=== PATIENT | male | born 1960 | race Two or more races ===

== ENCOUNTER 2024-02-07 20:49 | Inpatient (IN) | payer OTHER ==
[~2024-02-07] VITALS: Ht 167.6 cm; Wt 76.0 kg
[2024-02-07 21:00] VITALS: PULSE 92; RESP 15; O2SAT 100
[2024-02-07 21:18] LABS: Basophils # (auto) 0.1 10 ^3/uL (0-0.2); Basophils % (auto) 0.9 % (0.0-2.0); Eosinophils # (auto) 0.4 10 ^3/uL (0-0.8); Eosinophils % (auto) 6.3 % (0.0-7.0); Hematocrit 25.8 % (41.0-53.0); Hemoglobin 8.6 g/dL (13.5-17.5); Lymphocytes # (auto) 0.6 10 ^3/uL (0.4-5.4); Lymphocytes % (auto) 9.7 % (10.0-50.0); Mean Corpuscular Hemoglobin 30.2 pg (28.0-32.0); Mean Corpuscular Hgb Conc. 33.5 g/dL (32.0-36.0); Mean Corpuscular Volume 90.1 fL (80.0-100.0); Monocytes # (auto) 0.3 10 ^3/uL (0-1.3); Monocytes % (auto) 5.6 % (0.0-12.0); Neutrophils # (auto) 4.6 10 ^3/uL (1.6-8.6); Neutrophils % (auto) 77.5 % (37.0-80.0); Nucleated Red Blood Cells % 0.2 %; Red Blood Cells 2.86 10^6/uL (4.5-5.90); Red Cell Distribution Width 15.4 % (11.8-14.3); White Blood Cell 5.9 10^3/uL (4.4-10.8)
[2024-02-07 21:33] LABS: Alanine Aminotransferase 21 U/L (7-40); Albumin 3.7 g/dL (3.2-4.8); Alkaline Phosphatase 81 U/L (46-116); Anion Gap 4 (5-15); Aspartate Aminotransferase 19 U/L (13-40); BUN/Creatinine Ratio 10.1 (10.0-20.0); Bilirubin, Total 0.3 mg/dL (0.2-1.0); Blood Urea Nitrogen 64 mg/dL (9-23); Calcium 8.9 mg/dL (8.7-10.4); Carbon Dioxide 28 mmol/L (20-30); Chloride 102 mmol/L (98-107); INR 0.98 (0.9-1.15); Magnesium 1.8 mg/dL (1.6-2.6); Partial Thromboplastin Time 25.9 SEC (24.5-34.5); Potassium 5.2 mmol/L (3.5-5.1); Prothrombin Time 10.3 sec (9.3-11.8); Sodium 134 mmol/L (136-145); Total Protein 5.6 g/dL (5.7-8.2)
[2024-02-07 21:39] LABS: Glucose 432 mg/dL (74-106)
[2024-02-07] MEDS: InsuLIN REG 1unit/0.01ml Soln (100units/ml) IV ONE (22:24)
[2024-02-07] MEDS: ASPirin 325 MG TAB PO ONE (23:04)
[2024-02-07 23:32] LABS: Urine Bacteria NONE SEEN /hpf (None Seen); Urine Blood Negative /uL (Negative); Urine Clarity Clear (Clear); Urine Color Colorless (Yellow); Urine Protein, UAD 1+ (Negative); Urine Specific Gravity 1.008 (1.001-1.035); Urine Urobilinogen Normal (Negative); Urine WBC <1 /hpf (0 - 3); Urine pH 7.5 (5.0-8.0)
[2024-02-07] MEDS: HEPARIN SODIUM (PORCINE) 5000 UNITS/ML 1ML VIAL IV ONE (23:36)
[2024-02-08] VITALS (17 sets, daily range): BP systolic 98–174; BP diastolic 55–123; PULSE 74–119; RESP 9–26; TEMP 97.8–98.8; O2SAT 89–100
[2024-02-08] MEDS: PERITONEAL DIALYSIS 2.5% SOLN 2,000 ML IP SCH
[2024-02-08] MEDS: HEPARIN DRIP/D5W 100UNITS/ML 250 ML IV SCH (00:38)
[2024-02-08] MEDS ORDERED: DEXTROSE (50%) 50ML SYRG IV PRN (01:45)
[2024-02-08] MEDS ORDERED: ACETAMINOPHEN 325 MG TAB PO PRN (01:45)
[2024-02-08] MEDS ORDERED: HYDROcodone-ACET 5/325MG TAB PO PRN (01:45)
[2024-02-08] MEDS: InsuLIN REG 1unit/0.01ml Soln (100units/ml) SC SCH (04:00)
[2024-02-08] MEDS ORDERED: HYDR50TA47 PO (04:56)
[2024-02-08] MEDS ORDERED: LEVO137T3 PO (04:56)
[2024-02-08] MEDS ORDERED: ISOS1TAB28 PO (04:56)
[2024-02-08] MEDS ORDERED: CLON0.1T PO (04:56)
[2024-02-08] MEDS ORDERED: NIFE1TAB31 PO (04:56)
[2024-02-08] MEDS ORDERED: LISI-275 PO (04:56)
[2024-02-08] MEDS ORDERED: INSU1INJ3 SC (04:56)
[2024-02-08] MEDS ORDERED: FURO80TA3 PO (04:56)
[2024-02-08] MEDS ORDERED: ATOR40TA52 PO (04:56)
[2024-02-08 07:28] LABS: Basophils # (auto) 0.1 10 ^3/uL (0-0.2); Eosinophils # (auto) 0.6 10 ^3/uL (0-0.8); Mean Corpuscular Hemoglobin 30.1 pg (28.0-32.0); Monocytes # (auto) 0.5 10 ^3/uL (0-1.3); Red Blood Cells 2.67 10^6/uL (4.5-5.90); Red Cell Distribution Width 15.5 % (11.8-14.3)
[2024-02-08 07:30] LABS: Hematocrit 23.7 % (41.0-53.0); Hemoglobin 8.1 g/dL (13.5-17.5); Lymphocytes % (auto) 14.8 % (10.0-50.0); Mean Corpuscular Volume 88.6 fL (80.0-100.0); Monocytes % (auto) 8.4 % (0.0-12.0); Neutrophils # (auto) 4.2 10 ^3/uL (1.6-8.6); Neutrophils % (auto) 65.8 % (37.0-80.0); White Blood Cell 6.4 10^3/uL (4.4-10.8)
[2024-02-08 07:38] LABS: Anion Gap 7 (5-15); Carbon Dioxide 28 mmol/L (20-30); Chloride 104 mmol/L (98-107); Potassium 4.5 mmol/L (3.5-5.1); Sodium 139 mmol/L (136-145)
[2024-02-08 07:39] LABS: Calcium 8.8 mg/dL (8.5-10.1)
[2024-02-08 07:41] LABS: INR 1.01 (0.9-1.15); Partial Thromboplastin Time 43.5 SEC (24.5-34.5); Prothrombin Time 10.6 sec (9.3-11.8)
[2024-02-08 07:44] LABS: BUN/Creatinine Ratio 10.9 (10.0-20.0); Blood Urea Nitrogen 74 mg/dL (9-23); Glucose 135 mg/dL (74-106); Triglycerides 168 mg/dL (< 150)
[2024-02-08 07:45] LABS: LDL Cholesterol 71 mg/dL (< 100)
[2024-02-08 07:46] LABS: Cholesterol 132 mg/dL (< 200); HDL Cholesterol 25 mg/dL (40-59)
[2024-02-08] MEDS: ACCU-CHEK COMFORT CURVE STRIP VI SCH (07:47)
[2024-02-08] MEDS: SODIUM CHLOR 0.9% PF (SALINE LOCK) 10ML VIAL/SYR IV SCH (07:47)
[2024-02-08] MEDS: HEPARIN IN NS 1000Units/500mL 1,500 ML ONE (09:09)
[2024-02-08] MEDS: LIDOCAINE 2%HCL (LOCAL ANESTH.) INJ 20ML MDV ONE ×2 (09:09→10:11)
[2024-02-08] MEDS: IODIXANOL 320MG/ML 100ML BTL IV ONE ×4 (09:10→13:17)
[2024-02-08] MEDS: IOHEXOL 350 MG/ML 100ML IJ ONE (09:10)
[2024-02-08] MEDS: PERITONEAL DIALYSIS 2.5% SOLN 2,000 ML IP ONE (10:00)
[2024-02-08] MEDS ORDERED: METOPROLOL TARTRATE 25 MG TAB PO SCH (10:00)
[2024-02-08] MEDS: VERAPAMIL 2.5MG/ML INJ 2ML VIAL IV ONE (10:10)
[2024-02-08] MEDS: ANGIOMAX 250 MG VIAL IV ONE (10:10)
[2024-02-08] MEDS: MIDAZOLAM HCL 2MG/2ML 2ml VIAL (1mg/ml) ONE (10:10)
[2024-02-08] MEDS: HEPARIN SODIUM (PORCINE) 5000 UNITS/ML 1ML VIAL ONE (10:10)
[2024-02-08] MEDS: fentaNYL CITRATE 100 MCG/2 ML VL ONE (10:10)
[2024-02-08] MEDS: SODIUM CHL 0.9% 50 ML ONE (10:10)
[2024-02-08 11:30] LABS: Magnesium 1.9 mg/dL (1.6-2.6)
[2024-02-08] MEDS: HYDROmorphone HCL 2 MG/ML VL/or syr ONE ×2 (12:19→13:16)
[2024-02-08] MEDS: EPTIFIBATIDE INJ (2MG/ML) 10ML VIAL IV ONE (12:42)
[2024-02-08] MEDS: EPTIFIBATIDE DRIP(0.75MG/ML) 100 ML IV ONE (13:17)
[2024-02-08] MEDS: EPTIFIBATIDE DRIP(0.75MG/ML) 100 ML IV SCH (13:31)
[2024-02-08] MEDS: CLOPIDOGREL BISULFATE 75 MG TAB ONE ×2 (13:37→13:38)
[2024-02-08] MEDS: ASPirin 325 MG TAB ONE (13:38)
[2024-02-08] MEDS: ONDANSETRON HCL 4 MG/2 ML VIAL IV PRN (13:46)
[2024-02-08] MEDS: CLOPIDOGREL BISULFATE 75 MG TAB PO ONE (14:09)
[2024-02-08] MEDS: ASPirin-EC 81 mg tab PO ONE (14:09)
[2024-02-08] MEDS: NITROGLYCERIN 0.4 MG SL TAB SL PRN (14:20)
[2024-02-08] MEDS: NITROGLYCERIN 0.4MG/HR TOPICAL PATCH TD ONE ×2 (15:30→17:15)
[2024-02-08] MEDS: FUROSEMIDE 100 MG/10ML VIAL IV SCH (15:45)
[2024-02-08] MEDS: MORPHINE SULFATE INJ 2 MG/ml SYRG IV PRN ×2 (16:25→20:50)
[2024-02-08] MEDS: EPOETIN ALFA-EPBX 10,000 UNIT/1ML VIAL SC SCH (18:42)
[2024-02-08] MEDS ORDERED: ATORVASTATIN 20 MG TAB PO SCH (22:00)
[2024-02-08] MEDS: ATORVASTATIN 20 MG TAB PO SCH (23:08)
[2024-02-08] MEDS: METOPROLOL TARTRATE 25 MG TAB PO SCH (23:08)
[2024-02-09] VITALS (28 sets, daily range): BP systolic 124–182; BP diastolic 47–90; PULSE 62–92; RESP 6–17; TEMP 97.8–98.8; O2SAT 87–100
[2024-02-09] MEDS: COLCHICINE 0.6 MG CAP PO ONE (01:37)
[2024-02-09] MEDS: hydrALAZINE HCL 20 MG/ML VL ONE ×2 (04:13→17:46)
[2024-02-09] MEDS: HYDROmorphone HCL 2 MG/ML VL/or syr IV PRN (04:27)
[2024-02-09] MEDS: METOCLOPRAMIDE HCL 5MG/ml INJ 2ml VIAL IV PRN (04:48)
[2024-02-09] MEDS: hydrALAZINE HCL 20 MG/ML VL IV PRN (05:01)
[2024-02-09 05:02] LABS: Basophils # (auto) 0.1 10 ^3/uL (0-0.2); Eosinophils # (auto) 0.2 10 ^3/uL (0-0.8); Eosinophils % (auto) 1.7 % (0.0-7.0); Hematocrit 26.9 % (41.0-53.0); Hemoglobin 9.2 g/dL (13.5-17.5); Lymphocytes # (auto) 0.7 10 ^3/uL (0.4-5.4); Lymphocytes % (auto) 7.8 % (10.0-50.0); Mean Corpuscular Hemoglobin 30.2 pg (28.0-32.0); Mean Corpuscular Hgb Conc. 34.1 g/dL (32.0-36.0); Mean Corpuscular Volume 88.6 fL (80.0-100.0); Monocytes # (auto) 0.7 10 ^3/uL (0-1.3); Monocytes % (auto) 7.7 % (0.0-12.0); Neutrophils # (auto) 7.7 10 ^3/uL (1.6-8.6); Neutrophils % (auto) 81.8 % (37.0-80.0); Red Blood Cells 3.04 10^6/uL (4.5-5.90); Red Cell Distribution Width 15.5 % (11.8-14.3); White Blood Cell 9.4 10^3/uL (4.4-10.8)
[2024-02-09 05:12] LABS: Alanine Aminotransferase 20 U/L (7-40); Alkaline Phosphatase 94 U/L (46-116); Anion Gap 7 (5-15); Aspartate Aminotransferase 34 U/L (13-40); Bilirubin, Total 0.4 mg/dL (0.2-1.0); Blood Urea Nitrogen 71 mg/dL (9-23); Calcium 9.4 mg/dL (8.7-10.4); Carbon Dioxide 28 mmol/L (20-30); Chloride 102 mmol/L (98-107); Glucose 98 mg/dL (74-106); Potassium 4.7 mmol/L (3.5-5.1); Sodium 137 mmol/L (136-145)
[2024-02-09 05:13] LABS: Total Protein 6.4 g/dL (5.7-8.2)
[2024-02-09 05:35] LABS: % Iron Saturation 24.8 % (20-55)
[2024-02-09] MEDS: FAMOTIDINE (10MG/ML) 2ML VL IV SCH (10:00)
[2024-02-09] MEDS: NITROGLYCERIN 0.4MG/HR TOPICAL PATCH TD SCH (10:00)
[2024-02-09] MEDS: MUPIROCIN 2% OINT 15gm or 22gm TOP SCH (10:00)
[2024-02-09] MEDS ORDERED: KETOROLAC TROMETH 30 MG/ML 1ML VIAL IV ONE (10:30)
[2024-02-09] MEDS: CLOPIDOGREL BISULFATE 75 MG TAB PO SCH (10:43)
[2024-02-09] MEDS: COLCHICINE 0.6 MG CAP PO SCH (10:45)
[2024-02-09] MEDS: KETOROLAC TROMETH 30 MG/ML 1ML VIAL IV ONE (10:46)
[2024-02-09] MEDS: B-COMPLEX W/ C & FOLIC ACID(NEPHROVITE TAB) PO SCH (10:53)
[2024-02-09] MEDS: ASPirin 81 mg TAB PO SCH (10:53)
[2024-02-09] MEDS: LIDOCAINE 2%HCL (LOCAL ANESTH.) INJ 20ML MDV ONE (17:12)
[2024-02-09] MEDS: HEPARIN SODIUM (PORCINE) 5000 UNITS/ML 1ML VIAL ONE (17:12)
[2024-02-09] MEDS: SODIUM CHL 0.9% 50 ML ONE (17:12)
[2024-02-09] MEDS: VERAPAMIL 2.5MG/ML INJ 2ML VIAL IV ONE (17:12)
[2024-02-09] MEDS: ANGIOMAX 250 MG VIAL IV ONE (17:12)
[2024-02-09] MEDS: fentaNYL CITRATE 100 MCG/2 ML VL ONE (17:12)
[2024-02-09] MEDS: MIDAZOLAM HCL 2MG/2ML 2ml VIAL (1mg/ml) ONE (17:12)
[2024-02-09] MEDS: IODIXANOL 320MG/ML 100ML BTL IV ONE ×2 (17:21→18:07)
[2024-02-09] MEDS: HYDROmorphone HCL 2 MG/ML VL/or syr ONE (18:42)
[2024-02-09] MEDS ORDERED: HYDROmorphone HCL 2 MG/ML VL/or syr IV PRN (18:45)
[2024-02-09] MEDS: cloNIDine HCL 0.1 MG TAB PO PRN (21:57)
[2024-02-09] MEDS: SEVELAMER 800 MG TAB PO SCH (21:58)
[2024-02-10] VITALS (105 sets, daily range): BP systolic 107–194; BP diastolic 55–122; PULSE 64–110; RESP 6–21; TEMP 98.5–98.9; O2SAT 87–100
[2024-02-10] MEDS: HYDROmorphone HCL 2 MG/ML VL/or syr IV PRN (04:19)
[2024-02-10] MEDS: NITROGLYCERIN 50MG/250ML 250 ML IV SCH (04:35)
[2024-02-10 09:22] LABS: Basophils # (auto) 0 10 ^3/uL (0-0.2); Basophils % (auto) 0.4 % (0.0-2.0); Eosinophils # (auto) 0 10 ^3/uL (0-0.8); Eosinophils % (auto) 0.2 % (0.0-7.0); Hematocrit 25.7 % (41.0-53.0); Hemoglobin 8.5 g/dL (13.5-17.5); Lymphocytes # (auto) 0.8 10 ^3/uL (0.4-5.4); Lymphocytes % (auto) 6.7 % (10.0-50.0); Mean Corpuscular Hemoglobin 29.8 pg (28.0-32.0); Mean Corpuscular Hgb Conc. 33.3 g/dL (32.0-36.0); Mean Corpuscular Volume 89.5 fL (80.0-100.0); Monocytes # (auto) 0.7 10 ^3/uL (0-1.3); Monocytes % (auto) 5.7 % (0.0-12.0); Neutrophils # (auto) 10.3 10 ^3/uL (1.6-8.6); Red Blood Cells 2.87 10^6/uL (4.5-5.90); Red Cell Distribution Width 15.1 % (11.8-14.3); White Blood Cell 11.8 10^3/uL (4.4-10.8)
[2024-02-10 09:32] LABS: Alanine Aminotransferase 18 U/L (7-40); Albumin 3.9 g/dL (3.2-4.8); Alkaline Phosphatase 98 U/L (46-116); Anion Gap 10 (5-15); Aspartate Aminotransferase 30 U/L (13-40); BUN/Creatinine Ratio 8.9 (10.0-20.0); Blood Urea Nitrogen 73 mg/dL (9-23); Carbon Dioxide 26 mmol/L (20-30); Chloride 99 mmol/L (98-107); Potassium 4.7 mmol/L (3.5-5.1); Sodium 135 mmol/L (136-145)
[2024-02-10 09:33] LABS: Bilirubin, Total 0.3 mg/dL (0.2-1.0); Total Protein 6.2 g/dL (5.7-8.2)
[2024-02-10 10:43] LABS: Glucose 210 mg/dL (74-106)
[2024-02-10] MEDS: DOCUSATE SOD 100 MG CAP PO PRN (11:00)
[2024-02-10] MEDS: IRON SUCROSE COMPLEX 100 ML IV SCH (12:38)
[2024-02-10] MEDS: KETOROLAC TROMETH 30 MG/ML 1ML VIAL IV ONE (18:10)
[2024-02-10] MEDS: ISOSORBIDE MONONITRATE 20 MG TAB PO SCH (21:33)
[2024-02-11] VITALS (61 sets, daily range): BP systolic 113–186; BP diastolic 55–92; PULSE 69–104; RESP 9–19; TEMP 98.4–98.7; O2SAT 90–100
[2024-02-11 05:11] LABS: Basophils # (auto) 0 10 ^3/uL (0-0.2); Basophils % (auto) 0.6 % (0.0-2.0); Eosinophils # (auto) 0.2 10 ^3/uL (0-0.8); Hematocrit 23.1 % (41.0-53.0); Hemoglobin 7.9 g/dL (13.5-17.5); Lymphocytes # (auto) 0.5 10 ^3/uL (0.4-5.4); Lymphocytes % (auto) 10.6 % (10.0-50.0); Mean Corpuscular Hemoglobin 30.4 pg (28.0-32.0); Mean Corpuscular Hgb Conc. 34.2 g/dL (32.0-36.0); Mean Corpuscular Volume 88.8 fL (80.0-100.0); Monocytes # (auto) 0.4 10 ^3/uL (0-1.3); Monocytes % (auto) 10.1 % (0.0-12.0); Neutrophils # (auto) 3.2 10 ^3/uL (1.6-8.6); Neutrophils % (auto) 73.7 % (37.0-80.0); Red Blood Cells 2.61 10^6/uL (4.5-5.90); Red Cell Distribution Width 15.2 % (11.8-14.3); White Blood Cell 4.3 10^3/uL (4.4-10.8)
[2024-02-11 05:16] LABS: Anion Gap 6 (5-15); Carbon Dioxide 28 mmol/L (20-30); Chloride 100 mmol/L (98-107); Sodium 134 mmol/L (136-145)
[2024-02-11 05:17] LABS: Calcium 8.3 mg/dL (8.5-10.1)
[2024-02-11 05:22] LABS: BUN/Creatinine Ratio 9.1 (10.0-20.0); Glucose 128 mg/dL (74-106)
[2024-02-11 05:29] LABS: Blood Urea Nitrogen 80 mg/dL (9-23)
[2024-02-11 05:40] LABS: Magnesium 1.8 mg/dL (1.6-2.6)
[2024-02-11] MEDS: PROCHLORPERAZINE EDISYLATE 5 MG/ML 2ML VIAL IV PRN (09:17)
[2024-02-11] MEDS: METOPROLOL TARTRATE 25 MG TAB PO SCH (10:57)
[2024-02-12] VITALS (8 sets, daily range): BP systolic 142–187; BP diastolic 62–81; PULSE 69–82; RESP 17–19; TEMP 97.9–98.9; O2SAT 97–100
[2024-02-12] MEDS ORDERED: KETOROLAC TROMETH 30 MG/ML 1ML VIAL IV PRN (09:00)
[2024-02-12] MEDS: ISOSORBIDE MONONITRATE ER 60 MG TAB PO SCH (10:19)
[2024-02-12] MEDS: METOPROLOL TARTRATE 25 MG TAB PO SCH (10:20)
[2024-02-12] MEDS: LISINOPRIL 5 MG TAB PO SCH (10:20)
[2024-02-12] MEDS ORDERED: DOCUSATE SOD 100 MG CAP PO PRN (11:15)
[2024-02-12] MEDS ORDERED: LACTULOSE 20Gm/30ML SOLN PO PRN (11:15)
[2024-02-12 11:29] LABS: Basophils # (auto) 0 10 ^3/uL (0-0.2); Basophils % (auto) 0.6 % (0.0-2.0); Eosinophils # (auto) 0.1 10 ^3/uL (0-0.8); Hemoglobin 7.8 g/dL (13.5-17.5); Lymphocytes # (auto) 0.5 10 ^3/uL (0.4-5.4); Monocytes # (auto) 0.5 10 ^3/uL (0-1.3)
[2024-02-12 11:32] LABS: Eosinophils % (auto) 3.5 % (0.0-7.0); Hematocrit 22.7 % (41.0-53.0); Lymphocytes % (auto) 11.4 % (10.0-50.0); Mean Corpuscular Hemoglobin 30.3 pg (28.0-32.0); Mean Corpuscular Hgb Conc. 34.5 g/dL (32.0-36.0); Mean Corpuscular Volume 87.8 fL (80.0-100.0); Monocytes % (auto) 11.8 % (0.0-12.0); Neutrophils # (auto) 3.1 10 ^3/uL (1.6-8.6); Neutrophils % (auto) 72.7 % (37.0-80.0); Nucleated Red Blood Cells % 0.1 %; Red Blood Cells 2.58 10^6/uL (4.5-5.90); Red Cell Distribution Width 14.8 % (11.8-14.3); White Blood Cell 4.3 10^3/uL (4.4-10.8)
[2024-02-12 11:51] LABS: Alanine Aminotransferase 14 U/L (7-40); Albumin 3.3 g/dL (3.2-4.8); Alkaline Phosphatase 75 U/L (46-116); Anion Gap 5 (5-15); Aspartate Aminotransferase 17 U/L (13-40); BUN/Creatinine Ratio 8.4 (10.0-20.0); Bilirubin, Total 0.2 mg/dL (0.2-1.0); Carbon Dioxide 31 mmol/L (20-30); Chloride 98 mmol/L (98-107); Glucose 176 mg/dL (74-106); Potassium 3.9 mmol/L (3.5-5.1); Sodium 134 mmol/L (136-145); Total Protein 5.3 g/dL (5.7-8.2)
[2024-02-12 11:59] LABS: CRP High Sensitivity 1.79 mg/dL (<1.0)
[2024-02-12 12:07] LABS: Blood Urea Nitrogen 69 mg/dL (9-23)
[2024-02-12 12:10] LABS: Erythrocyte Sedimentation Rate 101 mm/hr (0-20)
[2024-02-12] MEDS ORDERED: CLOP75TA70 PO (12:26)
[2024-02-12] MEDS ORDERED: MET25T PO (12:26)
[2024-02-12] MEDS ORDERED: ASPI-325 PO (12:26)
[2024-02-12] MEDS ORDERED: LISI-275 PO (12:26)
[2024-02-12] MEDS ORDERED: ISOS1TAB29 PO (14:35)
[2024-02-12] MEDS ORDERED: MET50T PO (14:35)
== END 2024-02-12 15:49 | disposition home or self-care (01) | DRG 321 ==
LOC: EDBD 20:49 → EDUNIT# 20:49 → ER 20:49 → TELE 02-08 01:51 → TELE-CENTR 02-08 04:02 → DOU IN ICU 02-08 14:20 → ICU CENTRL 02-09 14:13 → TELE-WESTW 02-11 17:56
PROVIDERS: ADMIT Nurse Practitioner Family; ATTEND Internal Medicine
PROC: 027035Z Dilation of Coronary Artery, One Artery with Two Drug-eluting Intraluminal Devices, Percutaneous Approach (ICD-10-PCS; principal; 2024-02-08)
PROC: 4A023N7 Measurement of Cardiac Sampling and Pressure, Left Heart, Percutaneous Approach (ICD-10-PCS; 2024-02-08)
PROC: 3E073PZ Introduction of Platelet Inhibitor into Coronary Artery, Percutaneous Approach (ICD-10-PCS; 2024-02-08)
PROC: B211YZZ Fluoroscopy of Multiple Coronary Arteries using Other Contrast (ICD-10-PCS; 2024-02-08)
PROC: 02JA3ZZ Inspection of Heart, Percutaneous Approach (ICD-10-PCS; 2024-02-09)
DX: I21.4 Non-ST elevation (NSTEMI) myocardial infarction (principal); I50.33 Acute on chronic diastolic (congestive) heart failure; N18.6 End stage renal disease; I13.2 Hypertensive heart and chronic kidney disease with heart failure and with stage 5 chronic kidney disease, or end stage renal disease; D63.1 Anemia in chronic kidney disease; E11.65 Type 2 diabetes mellitus with hyperglycemia; E11.22 Type 2 diabetes mellitus with diabetic chronic kidney disease; E87.5 Hyperkalemia; I25.10 Atherosclerotic heart disease of native coronary artery without angina pectoris; E78.5 Hyperlipidemia, unspecified; E07.9 Disorder of thyroid, unspecified; Z99.2 Dependence on renal dialysis; Z79.4 Long term (current) use of insulin; Z95.5 Presence of coronary angioplasty implant and graft; Z79.899 Other long term (current) drug therapy
CPT/HCPCS: 36415; 71045; 74176; 76937; 80048; 80053; 80061; 81001; 82728; 82962; 83036; 83540; 83550; 83735; 83880; 84100; 84443; 84484; 85025; 85610; 85652; 85730; 86141; 86850; 86900; 86901; 87081; 92941; 93005; 93306; 93458; 97163; 99152; 99153; 99291; C1887; G0378; J1756; J1815; J1885; J2250; J2405; J3490; Q9967